=== PATIENT | female | born 1985 | race Caucasian/White ===

== ENCOUNTER → 2018-06-28 17:49 | Outpatient (CLI) | payer OTHER, SELFPAY | PROVIDERS: Visit Provider Otolaryngology | DX: J02.9 Acute pharyngitis, unspecified (principal) | CPT/HCPCS: 87070 ==

== ENCOUNTER → 2018-07-10 16:48 | Outpatient (CLI) | payer OTHER, SELFPAY | PROVIDERS: Family Provider Family Medicine; PCP Family Medicine; Visit Provider Otolaryngology | DX: J02.9 Acute pharyngitis, unspecified (principal) | CPT/HCPCS: 87070 ==

== ENCOUNTER 2018-08-14 20:31 | Day surgery (SDC) | payer OTHER, SELFPAY ==
[2018-08-14] VITALS (8 sets, daily range): BP systolic 114–151; BP diastolic 76–89; PULSE 74–101; RESP 16; TEMP 36.6–37.3; O2SAT 93–100; BMI 40.2
--- NOTE | 2018-08-14 20:48 | ED.DCSUM_ITS ---
- ER Visit Summary Date of Service: 08/14/18 Chief Complaint: Post tonsillar bleed History of Present Illness: The patient is a 33 F who presents because of post tonsil bleed. She was seen at outside facility. Physical Examination: Patient was not examined since she was seen directly by supervisor post wave, Dr. Rick Riley Test Results: [] Emergency Department Course and Treatment: Per Dr. Riley Treatment Plan: To OR Disposition: Per ENT Impression: Post tonsillar bleed seen directly by ENT as private outpatient This note was generated with [employer] dictation software. It may contain incorrect words, spelling, and punctuation that were not noted in review of the chart prior to signing ED Disposition - Plan for ED Patient: Chief Complaint: General Illness Referrals: Deirdre Springer MD [Primary Care Provider] -
--- NOTE | 2018-08-14 21:15 | PCM.CONS.GEN ---
Problem List (1) Post-tonsillectomy hemorrhage Status: Acute Reason for Consult Date of Consultation: 08/14/18 History of Present Illness: The patient is a 33 year old F who is post op day 9 from a tonsillectomy. she was doing well until this afternoon when she noticed an acute episode of bright red blood by mouth. she went to [place] ED where the bleeding stopped, but a large clot was noted in the right tonsillar fossa. she was transferred for surgical treatment. Past Medical History Allergies No Known Allergies Allergy (Verified 08/14/18 20:47) Home Medications: Ambulatory Orders Medication Instructions Recorded NK 08/14/18 Surgical History: tonsillectomy Smoking Status: Current every day smoker Review of Systems Constitutional: Denies: Chills, Fever, Weight Change HEENT: Denies: Head Aches, Sinus Congestion, Sinus Drainage Cardiovascular: Denies: Chest Pain, Palpitations Respiratory: Denies: Cough, Shortness of breath at rest, Sputum production Patient Problems: Active and Suspected Problems Post-tonsillectomy hemorrhage (Acute) - Physical Exam General: Alert, Oriented x3, Cooperative HEENT: Atraumatic, PERRLA, EOMI, Normocephalic Oral: - - clot in right tonsillar fossa Neck: No Nodes Vital Signs Temp Pulse Resp BP Pulse Ox 98.4 F 97 16 151/84 H 98 08/14/18 20:44 08/14/18 20:44 08/14/18 20:44 08/14/18 20:44 08/14/18 20:44 Oxygen Delivery Method Room Air Weight: 99.79 kg Body Mass Index (BMI) 40.2 Assessment/Plan All Active Problems Post-tonsillectomy hemorrhage (Acute) acute post-tonsillectomy bleed -to OR for surgical control
--- NOTE | 2018-08-14 21:19 | CON.PCM_ITS ---
Problem List (1) Post-tonsillectomy hemorrhage Status: Acute Reason for Consult Date of Consultation: 08/14/18 History of Present Illness: The patient is a 33 year old F who is post op day 9 from a tonsillectomy. she was doing well until this afternoon when she noticed an acute episode of bright red blood by mouth. she went to [facility] where the bleeding stopped, but a large clot was noted in the right tonsillar fossa. she was transferred for s urgical treatment. Past Medical History Allergies No Known Allergies Allergy (Verified 08/14/18 20:47) Home Medications: Ambulatory Orders Medication Instructions Recorded NK 08/14/18 Surgical History: tonsillectomy Smoking Status: Current every day smoker Review of Systems Constitutional: Denies: Chills, Fever, Weight Change HEENT: Denies: Head Aches, Sinus Congestion, Sinus Drainage Cardiovascular: Denies: Chest Pain, Palpitations Respiratory: Denies: Cough, Shortness of breath at rest, Sputum production Patient Problems: Active and Suspected Problems Post-tonsillectomy hemorrhage (Acute) - Physical Exam General: Alert, Oriented x3, Cooperative HEENT: Atraumatic, PERRLA, EOMI, Normocephalic Oral: - - clot in right tonsillar fossa Neck: No Nodes Vital Signs Temp Pulse Resp BP Pulse Ox 98.4 F 97 16 151/84 H 98 08/14/18 20:44 08/14/18 20:44 08/14/18 20:44 08/14/18 20:44 08/14/18 20:44 Oxygen Delivery Method Room Air Weight: 99.79 kg Body Mass Index (BMI) 40.2 Assessment/Plan All Active Problems Post-tonsillectomy hemorrhage (Acute) acute post-tonsillectomy bleed -to OR for surgical control
--- NOTE | 2018-08-14 21:22 | PCM.DC ---
- Discharge Diagnoses Current Active Problems: Current Active and Chronic Problems Post-tonsillectomy hemorrhage (Acute) You will use the following diet at home:: No restrictions Discharge Activity: May not drive while taking narcotic pain medications. Call your doctor if your incision/area has: Sudden Increased Bleeding Allergies/Adverse Reactions: Allergies No Known Allergies Allergy (Verified 08/14/18 20:47) Medications to take at Discharge Hydrocodone/Acetaminophen [[place] 5-325 Tablet] 1 ea PO Q6H 3 Days #10 tab 08/14/18 The following prescriptions were given: Hydrocodone/Acetaminophen [[place] 5-325 Tablet] 1 ea PO Q6H 3 Days #10 tab Primary Care Physician: Deirdre Springer MD [Primary Care Provider] - Test Results: Test results from this visit will be discussed in further detail at your follow-up appointment, if applicable. Please Follow Up With: Angel Riley MD When: 2 weeks as scheduled
--- NOTE | 2018-08-14 21:23 | PCM.OPRPT ---
Problem List (1) Post-tonsillectomy hemorrhage Status: Acute Report of Operation Date of Procedure: 08/14/18 Pre-Operative Diagnosis: post tonsillectomy hemorrhage Post-Operative Diagnosis: post tonsillectomy hemorrhage Surgery/Procedure Performed:: control post tonsillectomy hemorrhage Type of Anesthesia:: General Description of Procedure: on the day of the procedure, after appropriate informed consent was obtained, the patient was brought to the operating room and placed in supine position on the operating table. she was placed under general endotracheal anesthesia by the anesthesiologist. the endotracheal tube was secured, the eyes were taped. the table was rotated 90 degrees toward the surgeon. a head drape was placed. a mamie lorena mouthgag was inserted into the oral cavity with care not to damage the lips, teeth or gums. it was suspended from the marshall stand. a red rubber catheter was introduced transnasally to elevate the soft palate. a large right-sided tonsillar fossa clot was evacuated and several bleeding sites were cauterized. the left tonsillar fossa was evaluated as well and several areas were cauterized. the area was irrigated with saline. a valsalva maneuver was held and hemostasis was observed. floseal was placed in the bilateral tonsillar fossa. the patient was awoken from anesthesia and transferred to the PACU in stable condition.
--- NOTE | 2018-08-14 21:29 | OP.PCM_ITS ---
Problem List (1) Post-tonsillectomy hemorrhage Status: Acute Report of Operation Date of Procedure: 08/14/18 Pre-Operative Diagnosis: post tonsillectomy hemorrhage Post-Operative Diagnosis: post tonsillectomy hemorrhage Surgery/Procedure Performed:: control post tonsillectomy hemorrhage Type of Anesthesia:: General Description of Procedure: on the day of the procedure, after appropriate informed consent was obtained, the patient was brought to the operating room and placed in supine position on the operating table. she was placed under general endotracheal anesthesia by the anesthesiologist. the endotracheal tube was secured, the eyes were taped. the table was rotated 90 degrees toward the surgeon. a head drape was placed. a mamie lorena mouthgag was inserted into the oral cavity with care not to damage the lips, teeth or gums. it was suspended from the marshall stand. a red rubber catheter was introduced transnasally to elevate the soft palate. a large right- sided tonsillar fossa clot was evacuated and several bleeding sites were cauterized. the left tonsillar fossa was evaluated as well and several areas were cauterized. the area was irrigated with saline. a valsalva maneuver was held and hemostasis was observed. floseal was placed in the bilateral tonsillar fossa. the patient was awoken from anesthesia and transferred to the PACU in stable condition.
== END 2018-08-14 23:55 | disposition home or self-care (01) ==
LOC: ED 20:47 → SDC 20:48 → AC 20:49
PROVIDERS: Emergency Provider Otolaryngology; Family Provider Family Medicine; PCP Family Medicine; Referring Provider Otolaryngology; Visit Provider Otolaryngology
PROC: (CPT 42960; principal; 2018-08-14 21:00)
DX: J95.830 Postprocedural hemorrhage of a respiratory system organ or structure following a respiratory system procedure (principal); F17.200 Nicotine dependence, unspecified, uncomplicated
CPT/HCPCS: 42960; 99282; J7030; J2405